=== PATIENT | female | born 1985 | race Two or more races ===

== ENCOUNTER 2021-09-18 10:45 | Emergency (ER) | payer MEDICAID ==
[~2021-09-18] VITALS: Ht 157.5 cm; Wt 79.4 kg
[2021-09-18 11:37] VITALS: BP 131/91
[2021-09-18] MEDS ORDERED: IBUPROFEN 800 MG TAB PO ONE (12:15)
== END 2021-09-18 12:18 | disposition home or self-care (01) ==
LOC: ER 10:45
DX: S63.502A Unspecified sprain of left wrist, initial encounter (principal); Z98.51 Tubal ligation status; W18.39XA Other fall on same level, initial encounter; Y93.01 Activity, walking, marching and hiking; Y92.89 Other specified places as the place of occurrence of the external cause; Y99.8 Other external cause status
CPT/HCPCS: 29125; 73110

== ENCOUNTER 2021-10-07 11:02 | Emergency (ER) | payer MEDICAID ==
[~2021-10-07] VITALS: Ht 157.5 cm; Wt 79.4 kg
[2021-10-07 14:30] VITALS: BP 132/94
[2021-10-07] MEDS ORDERED: cefTRIAXone SOD 1,000 MG VL IM ONE (15:00)
[2021-10-07] MEDS ORDERED: ACETAMINOPHEN/CODEINE#3 (300/30mg) TAB PO ONE (15:00)
[2021-10-07] MEDS ORDERED: methylPREDNISolone SOD SUCC 125 MG/2 ML VL IM ONE (15:00)
[2021-10-07] MEDS ORDERED: ONDANSETRON ODT 4 MG TAB PO ONE (15:00)
[2021-10-07] MEDS ORDERED: AMOX-277 PO (15:05)
[2021-10-07] MEDS ORDERED: PRED20TA2 PO (15:05)
[2021-10-07] MEDS ORDERED: IBUP800T27 PO (15:05)
[2021-10-07] MEDS ORDERED: ALBU108A5 IN (15:05)
== END 2021-10-07 15:21 | disposition home or self-care (01) ==
LOC: ER 11:02
DX: U07.1 COVID-19 (principal); J06.9 Acute upper respiratory infection, unspecified
CPT/HCPCS: 36415; 71046; 87426; 87804; 96372; 99284; J0696; J2930; Q0162

== ENCOUNTER 2024-01-19 20:49 | Emergency (ER) | payer MEDICAID ==
[~2024-01-19] VITALS: Ht 157.5 cm; Wt 73.9 kg
[~2024-01-19 20:49] MED LIST: ALBU108A5 IN; AMOX875T4 PO; IBUP-1456 PO; PRED20TA2 PO
[2024-01-19] MEDS: SODIUM CHLORIDE 0.9% 1,000 ML IVB ONE (21:45)
[2024-01-19 21:51] LABS: Urine Amorphous Crystal FEW /hpf (None Seen); Urine Bacteria FEW /hpf (None Seen); Urine Blood 2+ /uL (Negative); Urine Clarity Turbid (Clear); Urine Color Colorless (Yellow); Urine Protein, UAD TRACE (Negative); Urine Specific Gravity 1.025 (1.001-1.035); Urine Urobilinogen Normal (Negative); Urine WBC 16 /hpf (0 - 5); Urine WBC Clumps PRESENT /hpf (None Seen); Urine pH 6.5 (5.0-9.0)
[2024-01-19 22:09] LABS: Basophils # (auto) 0 10 ^3/uL (0-0.2); Basophils % (auto) 0.4 % (0.0-2.0); Eosinophils # (auto) 0.1 10 ^3/uL (0-0.8); Eosinophils % (auto) 1.1 % (0.0-7.0); Hematocrit 37.5 % (36.0-46.0); Hemoglobin 12.6 g/dL (12.2-16.2); Lymphocytes # (auto) 2.6 10 ^3/uL (0.4-5.4); Lymphocytes % (auto) 34.3 % (10.0-50.0); Mean Corpuscular Hemoglobin 32.7 pg (28.0-32.0); Mean Corpuscular Hgb Conc. 33.6 g/dL (32.0-36.0); Mean Corpuscular Volume 97.4 fL (80.0-100.0); Monocytes # (auto) 0.4 10 ^3/uL (0-1.3); Monocytes % (auto) 4.7 % (0.0-12.0); Neutrophils # (auto) 4.6 10 ^3/uL (1.6-8.6); Neutrophils % (auto) 59.5 % (37.0-80.0); Nucleated Red Blood Cells % 0.1 %; Red Blood Cells 3.85 10^6/uL (4.0-5.20); Red Cell Distribution Width 12.3 % (11.8-14.3); White Blood Cell 7.7 10^3/uL (4.4-10.8)
[2024-01-19 22:17] LABS: Chloride 110 mmol/L (98-107); Potassium 3.7 mmol/L (3.5-5.1); Sodium 140 mmol/L (136-145)
[2024-01-19 22:18] LABS: Anion Gap 8 (5-15); Carbon Dioxide 22 mmol/L (20-30)
[2024-01-19 22:19] LABS: Calcium 9.6 mg/dL (8.7-10.4)
[2024-01-19 22:24] LABS: BUN/Creatinine Ratio 23.5 (10.0-20.0); Blood Urea Nitrogen 20 mg/dL (9-23); Glucose 105 mg/dL (74-106)
[2024-01-19] MEDS ORDERED: CIPR-173 PO (22:58)
[2024-01-19] MEDS ORDERED: TRAM50TA2 PO (22:58)
[2024-01-19] MEDS: KETOROLAC TROMETH 30 MG/ML 1ML VIAL IV ONE (23:39)
[2024-01-20 00:43] VITALS: BP 132/87; PULSE 94; RESP 18; TEMP 98.1; O2SAT 99
== END 2024-01-20 00:44 | disposition home or self-care (01) ==
LOC: ER 20:49
DX: N20.1 Calculus of ureter (principal); R10.9 Unspecified abdominal pain; E78.5 Hyperlipidemia, unspecified; Z87.442 Personal history of urinary calculi; Z98.890 Other specified postprocedural states; Z79.899 Other long term (current) drug therapy
CPT/HCPCS: 36415; 74176; 80048; 81001; 85025; 96361; 96374; 99285; J1885; J7030